=== PATIENT | male | born 2000 | race Caucasian/White ===

== ENCOUNTER 2024-05-11 20:27 | Emergency (ER) | payer OTHER ==
[2024-05-11] MEDS ORDERED: Oxymetazoline HCl 0.05% ( 15 ML ) ONE (21:06)
== END 2024-05-11 21:20 | disposition home or self-care (01) ==
LOC: CSHERS 20:27
DX: H66.92 Otitis media, unspecified, left ear (principal); R09.81 Nasal congestion; E11.9 Type 2 diabetes mellitus without complications; Z79.84 Long term (current) use of oral hypoglycemic drugs
CPT/HCPCS: 99282